=== PATIENT | male | born 1935 | race Caucasian/White ===

== ENCOUNTER 2020-12-11 16:24 | Emergency (ER) | payer MEDICARE, SELFPAY ==
--- NOTE | ~2020-12-11 | XR_ITS ---
EXAMINATION: XR HAND, LEFT CLINICAL INFORMATION: Fall. COMPARISON: None TECHNIQUE: Three views of the left hand. FINDINGS: The bones and soft tissues are normal. No fracture. Alignment is anatomic. Joint spaces are maintained. No erosions or soft tissue calcifications. XR/XR hand LT 2V IMPRESSION: Normal left hand.
[2020-12-11 16:38] VITALS: BP 123/92; PULSE 60; RESP 18; TEMP 36.7; O2SAT 98; BMI 27.4
[2020-12-11 19:47] VITALS: BP 154/66; PULSE 57; RESP 18; TEMP 36.3; O2SAT 98
--- NOTE | 2020-12-11 20:53 | ED_ITS ---
HPI - Fall General Chief Complaint: Fall Stated Complaint: fell cut mult fingers Time Seen by Provider: 12/11/20 20:46 Source: patient Mode of arrival: ambulatory History of Present Illness HPI Narrative: 85-year-old male with no significant past medical history presenting to the ED complaining of multiple lacerations to left hand S/P trip and fall over rock while hiking in [place] this morning around 10:30 a.m. Reports slipped over wet rock and fell on hand, denies head trauma or LOC. tetanus unknown. Denies numbness, tingling, weakness, injury to other area. Denies symptoms prior to fall MD complaint: fall Related Data Previous Rx's Medication Instructions Recorded bacitracin 500 unit/gram topical 1 appl TOPICAL BID #30 g 12/11/20 ointment cephalexin 500 mg capsule 500 mg PO QID 7 Days #28 cap 12/11/20 Allergies Allergy/AdvReac Type Severity Reaction Status Date / Time No Known Allergies Allergy Unverified 12/11/20 20:46 Review of Systems Review of Systems: Constitutional: No Fever, No Chills, No Fatigue, No Malaise ENT/Mouth: No Ear Pain, No Nasal Congestion, No Sinus Pain, No sore throat Eyes: No Eye Pain, No Swelling, No Redness, No Vision Changes Cardiovascular: No Chest Pain, No SOB, No Palpitations Respiratory: No Cough, No Dyspnea Gastrointestinal: No Nausea, No Vomiting, No Diarrhea, No Constipation, No Abdominal pain Genitourinary: No Dysuria, No Urinary Frequency, No Hematuria,No Flank Pain Musculoskeletal: + joint pain, No Myalgias, + Joint Swelling Skin: + Skin Lesions, No rash Neuro: No Weakness, No Numbness, No Paresthesias, No Loss of Consciousness, No Dizziness, No Headache Yes all other systems are reviewed and are negative Neurologic: Denies Abnormal speech present [facility] Past Medical History Attestation statement: The following information was validated with the patient. Social History Social History Advance Directives: No Advance Directives Information Provided: No Physical Exam Vital Signs: Vital Signs: Last Vital Signs Temp 97.3 F 12/11/20 19:47 Pulse 57 12/11/20 19:47 Resp 18 12/11/20 19:47 BP 154/66 H 12/11/20 19:47 Pulse Ox 98 10/31/21 19:47 Body Mass Index 27.4 Const: General: cooperative, healthy appearing, well developed, alert and awake Orientation/consciousness: patient oriented x3 Limitations: no limitations HENMT: Head: Yes normal to inspection and Yes atraumatic Ears: hearing grossly normal bilaterally General nose exam: Normal external nose present Face and sinus: Yes normal facial exam Eyes: General: appearance normal, both eyes and all related structures EOM: EOMs intact bilaterally Neck: Neck: Yes normal visual inspection and Yes no meningeal signs Resp: Effort & Inspection: normal respiratory effort and no respiratory distress Cardio: Rate: regular rate Peripheral pulses: radial pulses present GI: Inspection: Yes normal to inspection Skin: Rashes: no rashes Neuro: General: patient oriented x3, gait normal, tone normal, moves all extremities, no meningeal signs, no focal motor deficits and CN's II-XI intact bilaterally Cranial nerves: Yes CN's II-XII intact bilaterally and Yes Bilaterally intact EOM present Cognition (Neuro): normal cognition Speech: No Abnormal speech present Gait exam (Neuro): Normal gait present Extrem: Other: Left hand with noted swelling > MCP's. Thumb with subungual hematoma and distal abrasion/small avulsion Left hand: 3rd digit PIP with 2cm laceration, 4th digit 1cm laceration to PIP, and 5th digit with 0.5cm laceration with subcu tissue present to PIP Wrist nontender, neurovascularly intact, no snuffbox tenderness Full range of motion intact to all digits, finger to thumb opposition intact Procedures Laceration Laceration 1: Site: hand and other (3rd digit) Side (If applicable): left Size (cm): 2 Description: linear Depth: simple, single layer Local Anesthetic: lidocaine 1% and other anesthetic (Digital block) Amount of anesthesia used (mL): 2 Pre-repair: wound explored and irrigated extensively Skin layer closed with: nylon Size (cm): 4-0 Number of sutures: 5 Technique: simple, interrupted Laceration 2: Site: hand Side (If applicable): left (4th digit) Size (cm): 1 Description: linear Depth: simple, single layer Local Anesthetic: lidocaine 1% and other anesthetic (Digital block) Amount of anesthesia used (mL): 2 Pre-repair: wound explored and irrigated extensively Skin layer closed with: nylon Size (cm): 4-0 Number of sutures: 3 Technique: simple, interrupted Laceration 3: Site: hand Side (If applicable): left (5th digit) Size (cm): 0.5 Description: flap, irregular and contaminated Depth: simple, single layer Local Anesthetic: lidocaine 1% and other anesthetic (Digital block) Amount of anesthesia used (mL): 2 Pre-repair: wound explored and irrigated extensively Skin layer closed with: nylon Size (cm): 4-0 Number of sutures: 2 Technique: simple, interrupted Nail Trephination Location (finger): left and thumb Method of drainage: nail cautery Patient tolerated procedure: No Complications MDM - Fall MDM Narrative Medical decision making narrative: 85-year-old male with no significant past medical history presenting to the ED complaining of multiple lacerations to left hand S/P trip and fall over rock while hiking in [place] this morning around 10:30 a.m. on exam vital signs stable, NAD, physical exam as above, multiple lacerations noted to left hand phalanges, contaminated, full range of motion intact, neurovascularly intact. Plan: Obtain x-ray to rule out fracture, repair lacerations, update tetanus Medical Records Attestation: I reviewed the patient's medical records. Lab Data Attestation: I reviewed the patient's lab results. Discharge Plan Discharge Clinical Impression: Laceration of multiple sites, Subungual hematoma of finger Patient Disposition: Home, Self-Care Instructions: Subungual Hematoma (ED), Finger Laceration (ED) Additional Instructions: Please return to any emergency department or urgent care in 7-10 days to have your stitches taken out Avoid getting area wet for the next 24 hours, after 24 hours you may get wet but only pat dry, do not scrub Soak your thumb in warm water to help express blood If area begins look infected, is red, there is drainage, you spike fevers with return to the ED Keflex as an antibiotic, please take as prescribed In addition apply bacitracin or Neosporin to her wounds After stitches were taken out please apply antiscar cream like Mederma Prescriptions: New cephalexin 500 mg capsule 500 mg PO QID 7 Days Qty: 28 RF: 0 bacitracin 500 unit/gram ointment 1 appl topical BID Qty: 30 RF: 0 Referrals: ED Physician,Generic [Physician] - 1 week (7-10 days to have stitches taken out) Interventions: ED Discharge Assessment Last Done: 12/11/20 22:25 Discharge Date/Time: 12/11/20 22:43
[2020-12-11] MEDS: Acetaminophen 325 MG TABLET 650 MG PO (21:13)
[2020-12-11] MEDS: Lidocaine HCl 1 % MPF 5 ML VIAL SUBCUT ×3 (21:13→21:14)
[2020-12-11] MEDS: oxyCODONE HCl Immed Release 5 MG TABLET PO (21:13)
[2020-12-11] MEDS: Diphth,Pertus(ACell),Tet Adult 0.5 ML SYRINGE IM (21:15)
== END 2020-12-11 22:43 | disposition home or self-care (01) ==
PROVIDERS: Emergency Provider Internal Medicine; PCP Internal Medicine
DX: S61.412A Laceration without foreign body of left hand, initial encounter (principal); S60.112A Contusion of left thumb with damage to nail, initial encounter; W01.0XXA Fall on same level from slipping, tripping and stumbling without subsequent striking against object, initial encounter; Y93.01 Activity, walking, marching and hiking; Y92.89 Other specified places as the place of occurrence of the external cause; Y99.9 Unspecified external cause status
CPT/HCPCS: 11740; 12042; 73120; 90471; 90715; 99284